=== PATIENT | male | born 1930 | race Caucasian/White ===

== ENCOUNTER 2016-08-24 17:30 | Inpatient (IN) | payer OTHER ==
[~2016-08-24] VITALS: Ht 177.8 cm; Wt 77.1 kg
--- NOTE | ~2016-08-24 | EKG ---
[address] [address] ELECTROCARDIOGRAM REPORT Name: CHARLEY DOWNING RAMEZ Room #: 546-P ADM IN M.R.#: [id number] Admission: 08/24/16 Attend Phys: Kenya Lazaro Discharge: Date of : [birth year] Report #: [id number] THIS REPORT FOR: //name// [facility] ED Test Date: 2016-08-24 Test Time: 17:59:12 Pat Name: CHARLEY DOWNING Department: Room: 546 Gender: M Wire Transfer Clerk: wen : 1930 Requested By: Umm Leo Order Number: [id number] MD: Devendra Sanchez Measurements Intervals [place] Rate: 91 P: 26 [place]: 178 QRS: 5 QRSD: 79 T: 2 QT: 356 QTc: 439 Interpretive Statements Sinus tachycardia Ventricular trigeminy No previous ECG available for comparison Electronically Signed On 08-25-2016 13:33:00 CDT by Devendra Sanchez [email or web address] <ELECTRONICALLY SIGNED> By: Devendra Sanchez MD 08/25/16 1333 1759 1759 MD PARISA Zarate
[~2016-08-24 17:30] MED LIST: ASPIR 8181 MG PO; CENTRUM SILVER1 EAC4 PO; EQ ANTACID PO; HYDROCODONE-APA1 TA1 PO; LEVAQUIN 500 M500 M4 PO; LOPRESSOR25 PO; OMEPRAZOLE20 M2; PHENERGAN 25 MG25 M1 RECTAL; PRILOSEC 20 MG20 MG PO; PRINIVIL20 MG PO; PRINIVIL40 MG PO; SIMVASTATIN40 MG PO; TUMS PO; TYLENOL325 MG PO; VITAMIN D1000 UNI1 PO; VITAMIN E400 UNI2 PO; VITAMINC500 PO; ZOCOR40 MG PO; [UNRECOGNIZED DRUG - OTHER] PO
[2016-08-24 17:31] VITALS: BP 133/66
[2016-08-24 17:55] LABS: HEMATOCRIT 37.3 % (42.0-52.0); HEMOGLOBIN 12.3 gm/dL (14.0-18.0); MCH 28.8 pg (26.0-34.0); MCHC 33.1 g/dL (28.0-37.0); MCV 86.9 fL (80.0-100.0); PLATELET COUNT 174 thou/uL (150-400); RBC 4.29 mil/uL (4.50-6.00); RDW 14.1 % (10.5-14.5); WBC 6.6 thou/uL (4.0-11.0)
[2016-08-24 17:56] LABS: MANUAL DIFF YES
[2016-08-24 17:59] LABS: ANION GAP 12 mmol/L (7-16); BUN 20 mg/dL (7-18); CALCIUM 9.4 mg/dL (8.5-10.1); CHLORIDE 103 mmol/L (98-107); CO2 24 mmol/L (21-32); CREATININE 1.6 mg/dL (0.6-1.3); GLUCOSE 118 mg/dL (70-99); SODIUM 139 mmol/L (136-145)
[2016-08-24 18:07] LABS: ALBUMIN 3.8 g/dL (3.4-5.0); ALKALINE PHOSPHATASE 67 U/L (46-116); SGOT 24 U/L (15-37); SGPT 31 U/L (30-65); TOTAL BILIRUBIN 0.4 mg/dL (<0.1-1.0); TOTAL PROTEIN 7.3 g/dL (6.4-8.2); TROPONIN-I < 0.04 ng/mL (<0.04-0.07)
[2016-08-24 18:16] LABS: ABSOLUTE NEUTROPHILS 5.7 thou/uL (1.4-8.2); TOTAL CELL COUNT 100
[2016-08-24 19:17] LABS: URINE BILIRUBIN NEGATIVE (Negative); URINE BLOOD NEGATIVE (Negative); URINE COLOR YELLOW; URINE GLUCOSE-RANDOM* NEGATIVE (Negative); URINE KETONES TRACE (Negative); URINE NITRITE NEGATIVE (Negative); URINE PROTEIN (DIPSTICK) NEGATIVE (Negative); URINE UROBILINOGEN 0.2 E.U./dl (0.2-1.0)
[2016-08-24 20:39] VITALS: BP 130/49
[2016-08-24 20:45] VITALS: BP 103/79
[2016-08-25 03:52] VITALS: BP 160/64
[2016-08-25 04:00] VITALS: BP 160/64
[2016-08-25 05:28] LABS: TSH 0.704 uIU/mL (0.358-3.740)
[2016-08-25 08:41] VITALS: BP 134/56
[2016-08-25 16:00] VITALS: BP 130/56
[2016-08-25 20:46] VITALS: BP 125/50
[2016-08-26 05:24] LABS: CALCIUM 8.7 mg/dL (8.5-10.1); CREATININE 1.7 mg/dL (0.6-1.3); PHOSPHORUS 3.7 mg/dL (2.5-4.9); POTASSIUM 4.2 mmol/L (3.5-5.1)
[2016-08-26 07:25] VITALS: BP 151/69
[2016-08-26 16:44] VITALS: BP 139/58
[2016-08-26 22:22] VITALS: BP 154/66
[2016-08-27 05:07] LABS: ALBUMIN 2.9 g/dL (3.4-5.0); CALCIUM 8.4 mg/dL (8.5-10.1); CREATININE 1.6 mg/dL (0.6-1.3); PHOSPHORUS 3.2 mg/dL (2.5-4.9)
[2016-08-27 08:34] VITALS: BP 137/61
[2016-08-27 15:30] VITALS: BP 146/70
[2016-08-27 20:00] VITALS: BP 147/76
[2016-08-28 04:00] VITALS: BP 136/65
[2016-08-28 06:12] LABS: CALCIUM 8.6 mg/dL (8.5-10.1); CREATININE 1.5 mg/dL (0.6-1.3); PHOSPHORUS 3.6 mg/dL (2.5-4.9); POTASSIUM 3.9 mmol/L (3.5-5.1)
[2016-08-28 08:36] VITALS: BP 106/53
[2016-08-28 16:45] VITALS: BP 114/70
== END 2016-08-28 18:13 | DRG 551 ==
LOC: ER 17:30 → 5S 19:56 → EROBS 19:56 → 5S 20:28 → 4N 08-27 13:34
PROVIDERS: Hospitalist; Nurse Practitioner; Physician Assistant
DX: M48.00 Spinal stenosis, site unspecified (principal); N17.0 Acute kidney failure with tubular necrosis; E44.0 Moderate protein-calorie malnutrition; R29.6 Repeated falls; E78.5 Hyperlipidemia, unspecified; E78.00 Pure hypercholesterolemia, unspecified; N40.0 Benign prostatic hyperplasia without lower urinary tract symptoms; E89.0 Postprocedural hypothyroidism; E86.0 Dehydration; I12.9 Hypertensive chronic kidney disease with stage 1 through stage 4 chronic kidney disease, or unspecified chronic kidney disease; N18.3 Chronic kidney disease, stage 3 (moderate); Z90.49 Acquired absence of other specified parts of digestive tract; Z88.6 Allergy status to analgesic agent; Z87.891 Personal history of nicotine dependence; Z79.82 Long term (current) use of aspirin; Z79.899 Other long term (current) drug therapy; Z85.038 Personal history of other malignant neoplasm of large intestine; Z87.81 Personal history of (healed) traumatic fracture; Z82.49 Family history of ischemic heart disease and other diseases of the circulatory system; Z60.2 Problems related to living alone
CPT/HCPCS: 10785; 10790